=== PATIENT | male | born 1960 | race Caucasian/White ===

== ENCOUNTER 2025-01-23 17:09 | Inpatient (IN) | payer BC, MEDICARE ==
[~2025-01-23] VITALS: Ht 165.1 cm; Wt 86.2 kg
[2025-01-23 17:41] VITALS: O2SAT 98
[2025-01-23 18:14] LABS: BASOPHILS % 0.7 % (0.0-2.0); EOSINOPHILS % 1.2 % (0.0-5.0); HEMATOCRIT. 45.6 % (42.0-52.0); HEMOGLOBIN. 15.0 g/dL (14.0-18.0); LYMPHOCYTES % 19.3 % (20.0-50.0); MEAN PLATELET VOLUME 8.0 fl (7.4-10.4); MONOCYTES % 7.9 % (2.0-8.0); NEUTROPHILS % 70.9 % (40.0-76.0); PLATELET 199 x1000/uL (130-400); RED BLOOD CELL COUNT 5.30 mill/uL (4.7-6.1); RED CELL DISTRIBUTION WIDTH 15.2 % (11.6-14.6)
[2025-01-23 18:28] LABS: CREATININE 1.1 mg/dL (0.6-1.3)
[2025-01-23 18:29] LABS: UREA NITROGEN BLOOD 11 mg/dL (9-23)
[2025-01-23] MEDS: PIPERACILLIN/TAZO 3.375G/50ML 50 ML IV ONE (18:30)
[2025-01-23] MEDS: SODIUM CHLORIDE 0.9% (SEPSIS BOLUS) IV ONE (18:30)
[2025-01-23 19:15] LABS: CLARITY URINE CLEAR (CLEAR); COLOR URINE YELLOW (YELLOW); GLUCOSE URINE NEGATIVE (NEGATIVE); KETONES URINE NEGATIVE (NEGATIVE); LEUKOCYTE ESTERASE URINE NEGATIVE (NEGATIVE); NITRITE URINE NEGATIVE (NEGATIVE); OCCULT BLOOD URINE TRACE (NEGATIVE); PH URINE 6.0 (4.5-8.0); PROTEIN URINE NEGATIVE (NEGATIVE); SPECIFIC GRAVITY URINE 1.011 (1.005-1.030); UROBILINOGEN URINE 0.2 E.U./dL (0.2-1.0)
[2025-01-23 19:26] LABS: ASPARTATE AMINOTRANSFERASE 20 IU/L (<34); BILIRUBIN DIRECT 0.2 mg/dL (<=3.0); BILIRUBIN TOTAL 0.7 mg/dL (0.1-1.0); PROTEIN TOTAL 6.6 g/dL (6.0-8.3)
[2025-01-23 19:26] LABS: BACTERIA URINE RARE; SQUAMOUS EPITHELIAL CELL URINE NONE SEEN /lpf (RARE/1+); WBC URINE 0-2 /hpf (0-2)
[2025-01-23 19:28] LABS: INR 1.0
[2025-01-23] MEDS ORDERED: IOHEXOL-300 100 ML BOTTLE ONE (20:15)
[2025-01-23] MEDS: VANCOMYCIN 1G PREMIX 200 ML IV ONE (22:00)
[2025-01-23] MEDS ORDERED: ACETAMINOPHEN 325MG TABLET PO PRN ×2 (23:30)
[2025-01-23 23:45] VITALS: BP 150/90; PULSE 74; RESP 16; TEMP 36.5292
[2025-01-24 04:00] VITALS: BP 118/77; PULSE 65; RESP 16; TEMP 36.4; O2SAT 99
[2025-01-24] MEDS ORDERED: CHOL2000 PO (05:43)
[2025-01-24] MEDS: PIPERACILLIN/TAZO 3.375G/50ML 50 ML IV SCH (06:00)
[2025-01-24] MEDS ORDERED: VANCOMYCIN 750MG/150ML (BAXTER) IV SCH (06:00)
[2025-01-24 08:00] VITALS: BP 133/75; PULSE 77; RESP 20; TEMP 36.7; O2SAT 96
[2025-01-24] MEDS: ENOXAPARIN 40MG/0.4ML SYR SUBCUT SCH (09:49)
[2025-01-24] MEDS: ONDANSETRON HCL 4MG/2ML INJ IV PRN (09:59)
[2025-01-24 12:00] VITALS: BP 129/79; PULSE 81; RESP 18; TEMP 36.7; O2SAT 99
[2025-01-24] MEDS: VANCOMYCIN 750MG/150ML (BAXTER) IV SCH (15:51)
[2025-01-24 16:00] VITALS: BP 142/88; PULSE 76; RESP 18; TEMP 36.1; O2SAT 98
[2025-01-24 17:11] LABS: BASOPHILS % 0.5 % (0.0-2.0); EOSINOPHILS % 0.9 % (0.0-5.0); HEMATOCRIT. 47.6 % (42.0-52.0); HEMOGLOBIN. 15.7 g/dL (14.0-18.0); LYMPHOCYTES % 18.5 % (20.0-50.0); MEAN PLATELET VOLUME 8.9 fl (7.4-10.4); MONOCYTES % 8.2 % (2.0-8.0); NEUTROPHILS % 71.9 % (40.0-76.0); PLATELET 208 x1000/uL (130-400); RED BLOOD CELL COUNT 5.52 mill/uL (4.7-6.1); RED CELL DISTRIBUTION WIDTH 16.1 % (11.6-14.6)
[2025-01-24 17:27] LABS: CREATININE 0.9 mg/dL (0.6-1.3)
[2025-01-24 17:28] LABS: UREA NITROGEN BLOOD 8 mg/dL (9-23)
[2025-01-24 19:49] VITALS: BP_SYST 151; BP_SYST 169; BP_DIAS 89; BP_DIAS 96; PULSE 75; RESP 20; TEMP 97.8
[2025-01-24 20:00] VITALS: BP 151/96; PULSE 75; RESP 20; TEMP 36.6; O2SAT 96
== END 2025-01-24 20:45 | disposition home or self-care (01) | DRG 863 ==
LOC: ER 17:16 → 7WST 21:59 → EDBEDREQ 22:33 → EDBEDREQTM 22:33 → ENRESERV 23:02
PROVIDERS: ADMIT Student in an Organized Health Care Education/Training Program; ATTEND Student in an Organized Health Care Education/Training Program
DX: T81.40XA Infection following a procedure, unspecified, initial encounter (principal); G56.03 Carpal tunnel syndrome, bilateral upper limbs; E11.9 Type 2 diabetes mellitus without complications; F41.9 Anxiety disorder, unspecified; G47.33 Obstructive sleep apnea (adult) (pediatric); I10 Essential (primary) hypertension; Y83.8 Other surgical procedures as the cause of abnormal reaction of the patient, or of later complication, without mention of misadventure at the time of the procedure; Y92.89 Other specified places as the place of occurrence of the external cause
CPT/HCPCS: 36415; 70491; 80048; 80076; 81003; 83605; 84145; 85025; 85651; 96365; 96366; 99291; A4606; J1650; J2405; J2543; J3373; J7030; Q9967

== ENCOUNTER 2025-04-10 04:24 | Emergency (ER) | payer BC, MEDICARE ==
[~2025-04-10] VITALS: Ht 165.1 cm; Wt 82.0 kg
[~2025-04-10 04:24] MED LIST: CHOL2000 PO
[2025-04-10 04:37] VITALS: O2SAT 99
[2025-04-10] MEDS: ONDANSETRON 4MG ODT PO ONE (05:00)
[2025-04-10 05:17] LABS: BASOPHILS % 0.7 % (0.0-2.0); EOSINOPHILS % 2.6 % (0.0-5.0); HEMATOCRIT. 46.5 % (42.0-52.0); HEMOGLOBIN. 15.6 g/dL (14.0-18.0); LYMPHOCYTES % 12.2 % (20.0-50.0); MEAN PLATELET VOLUME 7.8 fl (7.4-10.4); MONOCYTES % 8.6 % (2.0-8.0); NEUTROPHILS % 75.9 % (40.0-76.0); PLATELET 235 x1000/uL (130-400); RED BLOOD CELL COUNT 5.58 mill/uL (4.7-6.1); RED CELL DISTRIBUTION WIDTH 12.9 % (11.6-14.6)
[2025-04-10 05:29] LABS: CREATININE 0.9 mg/dL (0.6-1.3); UREA NITROGEN BLOOD 7 mg/dL (9-23)
[2025-04-10 05:31] LABS: ASPARTATE AMINOTRANSFERASE 14 IU/L (<34); BILIRUBIN DIRECT 0.4 mg/dL (<=3.0)
[2025-04-10 05:32] LABS: BILIRUBIN TOTAL 1.3 mg/dL (0.1-1.0); PROTEIN TOTAL 6.7 g/dL (6.0-8.3)
[2025-04-10] MEDS: METOCLOPRAMIDE HCL 10MG/2ML VIAL IV ONE (06:16)
[2025-04-10] MEDS: ACETAMINOPHEN 1000MG/100ML 100 ML IV ONE (06:16)
[2025-04-10] MEDS: LACTATED RINGERS 1,000 ML IV SCH (06:16)
[2025-04-10 08:17] VITALS: BP 141/85; PULSE 78; RESP 16; TEMP 36.7; O2SAT 99
== END 2025-04-10 08:28 | disposition home or self-care (01) ==
LOC: ER 04:24 → CMPBEDREQ 04-11 07:39
DX: E87.1 Hypo-osmolality and hyponatremia (principal); R51.9 Headache, unspecified; R05.9 Cough, unspecified; R11.2 Nausea with vomiting, unspecified; R53.81 Other malaise; I10 Essential (primary) hypertension
CPT/HCPCS: 80076; 80048; 83690; 85025; 36415; 71045; 70450; 93005; 96374; 96375; 99285; Q0162; J2765; Z7610; J0131